=== PATIENT | female | born 2000 | race Two or more races ===

== ENCOUNTER 2022-01-31 14:29 | Emergency (ER) | payer SELFPAY ==
[~2022-01-31] VITALS: Ht 154.9 cm; Wt 45.0 kg
[2022-01-31 14:36] VITALS: BP 117/74
[2022-01-31] MEDS ORDERED: FAMOTIDINE 20MG TABLET PO ONE (18:45)
[2022-01-31] MEDS ORDERED: ACETAMINOPHEN 325MG TABLET PO PRN (18:45)
[2022-01-31] MEDS ORDERED: MAGNESIUM/ALUMINUM HYDROXIDE/SIMETHICONE 30ML UDC PO ONE (18:45)
[2022-01-31 19:20] LABS: CLARITY URINE CLOUDY (CLEAR); COLOR URINE YELLOW (YELLOW); KETONES URINE 4+ (NEGATIVE); LEUKOCYTE ESTERASE URINE 1+ (NEGATIVE); NITRITE URINE NEGATIVE (NEGATIVE); OCCULT BLOOD URINE NEGATIVE (NEGATIVE); PH URINE 5.5 (4.5-8.0); PROTEIN URINE TRACE (NEGATIVE); SPECIFIC GRAVITY URINE 1.028 (1.005-1.030)
[2022-01-31 20:18] LABS: BASOPHILS % 0.2 % (0.0-2.0); EOSINOPHILS % 1.4 % (0.0-5.0); HEMATOCRIT. 38.7 % (36.0-48.0); HEMOGLOBIN. 13.5 g/dL (12.0-16.0); LYMPHOCYTES % 29.8 % (20.0-50.0); MEAN CORPUSCULAR VOLUME 94.6 fL (81.0-99.0); MEAN PLATELET VOLUME 8.9 fl (7.4-10.4); MONOCYTES % 7.2 % (2.0-8.0); NEUTROPHILS % 61.4 % (40.0-76.0); PLATELET 215 x1000/uL (130-400); RED BLOOD CELL COUNT 4.09 mill/uL (4.2-5.4); RED CELL DISTRIBUTION WIDTH 12.5 % (11.6-14.6)
[2022-01-31 20:40] LABS: CHLORIDE 104 mEq/L (98-107)
[2022-01-31] MEDS ORDERED: MAGNESIUM/ALUMINUM HYDROXIDE/SIMETHICONE 30ML UDC PO SCH (20:45)
[2022-01-31] MEDS ORDERED: FAMOTIDINE 20MG TABLET PO SCH (20:45)
[2022-01-31] MEDS ORDERED: DOXY1TAB3 MT (21:00)
[2022-01-31] MEDS ORDERED: FAMO-135 MT (21:00)
[2022-01-31 21:04] LABS: B-HCG QUANTITATIVE 32556 mIU/mL (<3)
[2022-01-31] MEDS ORDERED: NITR-87 MT (21:04)
== END 2022-01-31 21:30 | disposition home or self-care (01) ==
LOC: ER 14:29
DX: O26.891 Other specified pregnancy related conditions, first trimester (principal); R10.9 Unspecified abdominal pain; Z3A.01 Less than 8 weeks gestation of pregnancy
CPT/HCPCS: 36415; 76801; 80053; 81003; 81025; 84702; 85025; 86850; 86900; 99284